=== PATIENT | male | born 2000 | race Caucasian/White ===

== ENCOUNTER 2020-09-23 12:36 | Emergency (ER) | payer BC, SELFPAY ==
[2020-09-23 12:54] VITALS: BP 125/63; PULSE 70; RESP 18; TEMP 37.2; O2SAT 100
--- NOTE | 2020-09-23 13:46 | ED.GENADULT ---
HPI - General Adult General Chief complaint: Urogenital-Male Stated complaint: Lump Around Groin Time Seen by Provider: 09/23/20 13:42 Source: patient and RN notes reviewed Mode of arrival: ambulatory Limitations: no limitations History of Present Illness HPI narrative: 19 year old male who presents to [facility] care with 2 day duration of feeling small lump in his left upper outer testicle.Patient states that he is not sure how long it has been there he just noticed the small pea sized lump. Patient denies pain to area states mild discomfort. He denies any concern for STD's states that he has never been sexually active., denies any pain or burning with urination or any hematuria. Patient denies any recent illness, fevers or other ill symptoms. MD complaint: small lump in left upper testicle Onset (ago): day(s) (2) Location: genitals Radiation: non-radiation Exacerbating factors: none Associated symptoms: denies other symptoms Treatments prior to arrival: none Related Data Home Medications Medication Instructions Recorded Confirmed No Home Medications 09/23/20 09/23/20 Allergies Allergy/AdvReac Type Severity Reaction Status Date / Time No Known Allergies Allergy Unverified 09/23/20 13:03 Review of Systems Review of Systems: Narrative: CONSTITUTIONAL: Denies fever, chills, or sweats. EYES: Denies visual changes, redness, or discharge. ENT: Denies rhinorrhea, congestion, sore throat, or otalgia. CARDIOVASCULAR: Denies chest pain, palpitations, or edema. RESPIRATORY: Denies cough or dyspnea. GASTROINTESTINAL: Denies abdominal pain, nausea, vomiting, or diarrhea. GENITOURINARY: Denies dysuria or hematuria.positive for small pea size lump in left upper outer testicle SKIN: Denies rash or itching. MUSCULOSKELETAL: Denies back pain, joint pain, or myalgia. NEUROLOGIC: Denies headache, numbness, or weakness. PSYCHIATRIC: Denies anxiety or depression. All systems reviewed & are unremarkable except as noted in HPI and below PMFSH Past Medical History Medical History (Updated 09/26/20 @ 09:47 by Vidhya Hamilton NP) Fracture of second metatarsal bone of left foot Surgical History Surgical History (Updated 09/23/20 @ 13:49 by Vidhya Hamilton NP) H/O circumcision Family History Family History (Updated 09/26/20 @ 10:25 by Vidhya Hamilton NP) Other No significant family history Social History Social History (Updated 09/26/20 @ 09:44 by Vidhya Hamilton NP) Smoking status: Never smoker Alcohol intake: never Substance use: never Living arrangements: with family Gender identity (if verbalized by the patient): Male Comments At time of signature, agree with nursing past medical, surgical, social and family history. There is no relevant family history pertinent to the presenting complaint Exam Narrative: Exam Narrative: GENERAL: Well-appearing, well-nourished, and in no acute distress. HEAD: Normocephalic, atraumatic. EYES: PERRLA and EOMI. ENT: Nares clear, no rhinorrhea or epistaxis. Mucous membranes moist. NECK: Supple.no lymphadenopathy CHEST: Clear to auscultation. No respiratory distress.SAO2 100% on room air HEART: Regular rate and rhythm. No murmur heard. Normal peripheral pulses. ABDOMEN: Soft, nontender, nondistended, normal active bowel sounds. small pea size nodule felt in left upper outer testicle non tender to palpation denies any fevers or acute pain. EXTREMITIES: Normal range of motion. No edema. SKIN: Warm, dry, no rash. NEURO: No focal deficits. Alert and oriented x3. Course Vital Signs Vital signs: Vital Signs Temperature 37.2 C 09/23/20 12:54 Pulse Rate 70 09/23/20 12:54 Respiratory Rate 18 09/23/20 12:54 Blood Pressure 125/63 09/23/20 12:54 Pulse Oximetry 100 09/23/20 12:54 Temperature 37.2 C 09/23/20 12:54 Pulse Rate 70 09/23/20 12:54 Respiratory Rate 18 09/23/20 12:54 Blood Pressure 125/63 09/23/20 12:54 Pulse Oximetry 100 03/
== END 2020-09-23 14:35 | disposition home or self-care (01) ==
PROVIDERS: Emergency Provider Registered Nurse
DX: N50.89 Other specified disorders of the male genital organs (principal)
CPT/HCPCS: 99211; G0463

== ENCOUNTER 2021-01-17 08:21 | Emergency (ER) | payer BC, SELFPAY ==
--- NOTE | 2021-01-17 08:26 | ED.URI ---
HPI - URI/Sore Throat General Chief Complaint: Upper Respiratory Infection Stated Complaint: cough runny nose fever congestion sore throat Time Seen by Provider: 01/17/21 08:26 Source: patient and RN notes reviewed History of Present Illness HPI Narrative: Patient is a 20-year-old male who presents the urgent care with complaints of sore throat, headache, stuffy nose, congestion, cough and fever. Patient states he had very mild symptoms a couple days ago but most of his symptoms started yesterday. Patient states his temperature got as high as 100.3 Fahrenheit and he is taking Tylenol and cold and flu medication [id number] for his symptoms. Patient denies obtaining a Covid swab. States that he has had known exposure to Covid or strep. Patient has had his Covid vaccination. No other acute complaints. No acute distress noted. Patient aware of the plan of care. Some parts of this dictation were generated by voice recognition software and may contain typographical and/or grammatical inaccuracies. Related Data Home Medications Medication Instructions Recorded Confirmed No Home Medications 09/23/20 09/23/20 Allergies Allergy/AdvReac Type Severity Reaction Status Date / Time No Known Allergies Allergy Unverified 09/26/20 14:06 Review of Systems Review of Systems: Narrative: CONSTITUTIONAL: Reports a fever EYES: Denies visual changes, redness, or discharge. ENT: Reports congestion, sore throat CARDIOVASCULAR: Denies chest pain, palpitations, or edema. RESPIRATORY: Reports of cough without dyspnea GASTROINTESTINAL: Denies abdominal pain, nausea, vomiting, or diarrhea. GENITOURINARY: Denies dysuria or hematuria. SKIN: Denies rash or itching. MUSCULOSKELETAL: Denies back pain, joint pain, or myalgia. NEUROLOGIC: Reports of intermittent headaches All other systems reviewed are negative, except as documented in HPI. FOR[facility]LY [facility] Past Medical History Medical History Fracture of second metatarsal bone of left foot Surgical History Surgical History H/O circumcision Family History Family History Other No significant family history Social History Social History Smoking status: Never smoker Alcohol intake: never Substance use: never Gender identity (if verbalized by the patient): Male Exam Narrative: Exam Narrative: GENERAL: This is a well-nourished, well-developed patient, in no apparent distress. HEAD: normocephalic, atraumatic. EYES: PERRL. Sclera clear/white. Vision is grossly intact. EARS: External ears normal, auditory canals clear and without drainage, TMs normal without perforation. Hearing grossly intact. NOSE: External nose normal with no obvious nasal discharge, nares without redness, no rhinorrhea. THROAT: Mucous membranes moist, posterior pharynx clear. Moderate postnasal drainage NECK: Neck supple, non-tender without lymphadenopathy CARDIOVASCULAR: Regular rate and rhythm without murmurs, gallops, or rubs. RESPIRATORY: Clear to auscultation. Breath sounds equal bilaterally. No wheezes, rales, or rhonchi. SKIN: warm, intact with no suspicious lesions or rash, good texture and turgor. NEURO: awake, alert, and oriented to person, place and time. There were no obvious focal neurologic abnormalities. EXTREMITIES: No clubbing, cyanosis, or edema. Course Vital Signs Vital signs: Vital Signs Temperature 98.7 F 01/17/21 08:30 Pulse Rate 82 01/17/21 08:30 Respiratory Rate 18 01/17/21 08:30 Blood Pressure 111/74 01/17/21 08:30 Pulse Oximetry 98 01/17/21 08:30 Temperature 98.7 F 01/17/21 08:30 Pulse Rate 82 01/17/21 08:30 Respiratory Rate 18 01/17/21 08:30 Blood Pressure 111/74 01/17/21 08:30 Pulse Oximetry 98 01/17/21 08:30 Reviewed [facility] - [facility]
[2021-01-17 08:30] VITALS: BP 111/74; PULSE 82; RESP 18; TEMP 37.1; O2SAT 98
[2021-01-18 16:43] LABS: SARS-CoV-2 RNA PCR Negative
== END 2021-01-17 08:56 | disposition home or self-care (01) ==
PROVIDERS: Emergency Provider Nurse Practitioner Family
DX: J02.9 Acute pharyngitis, unspecified (principal); J06.9 Acute upper respiratory infection, unspecified; Z20.822 Contact with and (suspected) exposure to COVID-19
CPT/HCPCS: 87081; 87880; 99213; C9803; G0463; U0003; U0005